=== PATIENT | female | born 1995 | race American Indian/Alaskan Native ===

== ENCOUNTER 2016-10-29 08:46 | Emergency (ER) | payer SELFPAY ==
[2016-10-29 09:52] VITALS: BP 133/95
[2016-10-29] MEDS ORDERED: ROCEPHIN IM ONE (11:16)
[2016-10-29] MEDS ORDERED: XYLOCAINE 1% MPF 5 mL INFILTRATI ONE (11:16)
[2016-10-29] MEDS ORDERED: DUONEB *Not for PRN Use IH ONE (11:16)
[2016-10-29] MEDS ORDERED: DECADRON IM ONE (11:16)
--- NOTE | 2016-10-29 11:20 | Emergency Department Report ---
- General Chief Complaint: Adult Asthma Stated Complaint: FREDY/CHEST TIGHTNESS/ SORE/ITCHY THROAT Time Seen by Provider: 10/29/16 11:07 Source: patient Mode of arrival: Ambulatory Limitations: No Limitations - History of Present Illness Initial Comments: Patient comes into the ER today with complaints of chest tightness, sore throat , nasal congestion, ears burning since yesterday. Patient does state that she has a history of asthma but she cannot find her inhalers. Patient states that she is on an orange inhaler that she is post to do daily. Patient denies any obvious fevers or chills but does state that the chest tightness and sore throat as well as nasal congested all started yesterday. - Related Data Previous Rx's Medication Instructions Recorded Last Taken Type ALBUTEROL Inhaler [ProAir HFA 2 puff IH QID PRN #1 inh 10/29/16 Unknown Rx Inhaler] Amoxicillin 1,000 mg PO BID #40 capsule 10/29/16 Unknown Rx Fluticasone (Nf) [Flovent Hfa(Nf)] 2 puff IH BID #1 inh 10/29/16 Unknown Rx predniSONE [Deltasone] 40 mg PO QDAY 5 Days 10/29/16 Unknown Rx Allergies Allergy/AdvReac Type Severity Reaction Status Date / Time No Known Allergies Allergy Unverified 10/29/16 09:47 ED Review of Systems ROS: Stated complaint: FREDY/CHEST TIGHTNESS/ SORE/ITCHY THROAT Other details as noted in HPI Constitutional: denies: chills, fever Eyes: denies: eye pain, eye discharge, vision change ENT: ear pain, throat pain, congestion. denies: dental pain, hearing loss, epistaxis Respiratory: cough, shortness of breath, wheezing Cardiovascular: as per HPI, chest pain. denies: palpitations, edema, syncope Endocrine: no symptoms reported Gastrointestinal: denies: abdominal pain, nausea, diarrhea Genitourinary: denies: urgency, dysuria, discharge Musculoskeletal: denies: back pain, joint swelling, arthralgia Skin: denies: rash, lesions Neurological: denies: headache, weakness, paresthesias Psychiatric: denies: anxiety, depression Hematological/Lymphatic: denies: easy bleeding, easy bruising ED Past Medical Hx - Past Medical History Previous Medical History?: Yes Hx Asthma: Yes - Surgical History Past Surgical History?: No - Social History Smoking Status: Never Smoker Substance Use Type: Prescribed - Medications Home Medications: Home Medications Medication Instructions Recorded Confirmed Last Taken Type ALBUTEROL Inhaler [ProAir HFA 2 puff IH QID PRN #1 inh 10/29/16 Unknown Rx Inhaler] Amoxicillin 1,000 mg PO BID #40 capsule 10/29/16 Unknown Rx Fluticasone (Nf) [Flovent Hfa(Nf)] 2 puff IH BID #1 inh 10/29/16 Unknown Rx predniSONE [Deltasone] 40 mg PO QDAY 5 Days 10/29/16 Unknown Rx ED Physical Exam - General Limitations: No Limitations General appearance: alert, in no apparent distress - Head Head exam: Present: atraumatic, normocephalic - Eye Eye exam: Present: normal appearance, PERRL, EOMI. Absent: conjunctival injection - ENT ENT exam: Present: mucous membranes moist, TM's normal bilaterally, normal external ear exam, other (moderate amount of posterior pharynx redness with left greater than right nasal mucosa redness and turbinate swelling.) - Neck Neck exam: Present: normal inspection, full ROM. Absent: tenderness, lymphadenopathy - Respiratory Respiratory exam: Present: wheezes, rhonchi, decreased breath sounds. Absent: respiratory distress, rales, chest wall tenderness, accessory muscle use - Cardiovascular Cardiovascular Exam: Present: regular rate, normal rhythm, normal heart sounds. Absent: systolic murmur, diastolic murmur, rubs, gallop - GI/Abdominal GI/Abdominal exam: Present: soft, normal bowel sounds - Extremities Exam Extremities exam: Present: normal inspection - Back Exam Back exam: Present: normal inspection - Neurological Exam Neurological exam: Present: alert, oriented X3, CN II-XII intact - Psychiatric Psychiatric exam: Present: normal affect, normal mood - Skin Skin exam: Present: warm, dry, intact, normal color. Absent: rash ED Course Vital Signs 10/29/16 09:47 Temperature 98.8 F Pulse Rate 72 Respiratory 20 Rate Blood Pressure 133/95 O2 Sat by Pulse 100 Oximetry ED Medical Decision Making - Medical Decision Making Patient is nontoxic and hemodynamically stable. Despite O2 sats being 100% on room air, due to the decreased breath sounds, patient was given DuoNeb treatment here in the ER. Repeat evaluation of breath sounds after neb treatment reveals improved breath sounds throughout all lung rodas. Patient states that she is feeling better. I will refill patient's Flovent as well as give her prescription for rescue inhaler. Patient is in agreement with treatment plan and patient is stable for discharge. Critical care attestation.: If time is entered above; I have spent that time in minutes in the direct care of this critically ill patient, excluding procedure time. ED Disposition Clinical Impression: Pharyngitis, Acute asthmatic bronchitis Disposition: TO HOME OR SELFCARE Is pt being admited?: No Does the pt Need Aspirin: No Condition: Good Instructions: Asthma (ED), Pharyngitis (ED), How to Use a Metered-Dose Inhaler (ED), Acute Bronchitis (ED) Prescriptions: ALBUTEROL Inhaler [ProAir HFA Inhaler] 2 puff IH QID PRN #1 inh PRN Reason: Shortness Of Breath Amoxicillin 1,000 mg PO BID #40 capsule Fluticasone (Nf) [Flovent Hfa(Nf)] 2 puff IH BID #1 inh predniSONE [Deltasone] 40 mg PO QDAY 5 Days Referrals: PRIMARY CARE, [Primary Care Provider] - 3-5 Days Forms: Work/School Release Form(ED) Time of Disposition: 12:06
== END 2016-10-29 12:13 | disposition home or self-care (01) ==
LOC: ED 08:46
DX: J45.909 Unspecified asthma, uncomplicated (principal); J02.9 Acute pharyngitis, unspecified
CPT/HCPCS: 94640; 96372; 99282; J0696; J1100